=== PATIENT | female | born 1975 | race Caucasian/White ===

== ENCOUNTER 2017-05-15 20:02 | Emergency (ER) | payer BC ==
[~2017-05-15] VITALS: Ht 170.2 cm; Wt 77.0 kg
[~2017-05-15 20:02] MED LIST: ADDE30TA PO
[2017-05-15 20:19] VITALS: BP 169/102; PULSE 77; RESP 20; TEMP 98.4; O2SAT 100
[2017-05-15] MEDS ORDERED: LEVO25TA39 PO (20:29)
[2017-05-15] MEDS ORDERED: AMLO2.5T PO (20:29)
[2017-05-15] MEDS ORDERED: ADDE30TA PO (20:29)
[2017-05-15] MEDS ORDERED: CLON0.5T PO (20:29)
--- NOTE | 2017-05-15 20:33 | PD ---
HPI Chief Complaint: Eye Problems/Injury Time Seen by Provider: 20:26 Travel History International Travel<30 days: No Contact w/Intl Traveler<30days: No Traveled to known affect area: No History of Present Illness HPI 42-year-old female presents the emergency department with injury to the right face and eye. Patient states she was bent over her [employer] dog when he lifts his head straight up and hit her directly in the face over the right eye. Patient now has pain, ecchymosis, and swelling to the right eye orbit. Patient states no visual changes or burning to the eye itself. Patient states she "almost passed out". Pain is localized around the eye socket. She denies dental pain, but states her right jaw is somewhat sore. She denies neck pain. She denies any other injury. Pain is currently an 8 out of 10. Patient is allergic to sulfa and morphine. PFSH Past Medical History ADHD: Yes Arthritis: No Asthma: No Autoimmune Disease: No Blood Disorders: No Depression: Yes Heart Rhythm Problems: No Cancer: No Cardiovascular Problems: No High Cholesterol: No Chemotherapy: No Chest Pain: No Congestive Heart Failure: No COPD: No Diabetes: No Diminished Hearing: No Endocrine: No GERD: No Glaucoma: No Genitourinary: No Headaches: Yes Hepatitis: No Hiatal Hernia: No Hypertension: No Immune Disorder: No Kidney Stones: No Musculoskeletal: No Neurologic: Yes (NEUROPATHY) Respiratory: No Integumentary: Yes (SHINGLES 12 X'S ) Myocardial Infarction: No Radiation Therapy: No Renal Failure: No Sickle Cell Disease: No Sleep Apnea: No Thyroid Disease: No Ulcer: No LMP: 3 WEEKS AGO Tubal Ligation: Yes Past Surgical History Abdominal Surgery: Yes AICD: No Section: Yes Gynecologic Surgery: Yes (RIGHT OOPHERECTOMY AND FALOPIAN TUBE) Joint Replacement: No Neurologic Surgery: Yes Pacemaker: No Social History Alcohol Use: No Tobacco Use: No Substance Use: No Allergies-Medications (Allergen,Severity, Reaction): Coded Allergies: Sulfa (Sulfonamide Antibiotics) (Unverified Allergy, Severe, HIVES, ) morphine (Unverified Allergy, Severe, 05/15/17) Reported Meds & Prescriptions Reported Meds & Active Scripts Active Ibuprofen 800 Mg Tab 800 Mg PO Q8H PRN 10 Days Mapap Extra Strength (Acetaminophen) 500 Mg Tab 1,000 Mg PO Q6HR PRN 10 Days Reported Levoxyl (Levothyroxine Sodium) 25 Mcg Tab 25 Mcg PO DAILY Amlodipine (Amlodipine Besylate) 2.5 Mg Tab 2.5 Mg PO DAILY Clonazepam 0.5 Mg Tab 0.5 Mg PO BID PRN Adderall (Amphetamine-Dextroamphetamine) 30 Mg Tab 30 Mg PO BID Avoid late evening doses. Space doses at least 4 to 6 hours if more than once/day dosing. Review of Systems Except as stated in HPI: all other systems reviewed are Neg General / Constitutional: No: Fever Eyes: No: Diploplia, Blurred Vision, Photophobia, Drainage, Redness, Foreign Body Sensation, Pain, Tearing, Blind Spots, Visual changes, Blindness HENT: Positive: Headaches, No: Vertigo, Lightheadedness, Sore Throat, Rhinitis , Rhinorrhea, Congestion, Nosebleed, Neck Stiffness, Neck Pain, Masses, Gingival Bleeding, Dental Difficulties, Ear Discharge, Earache Cardiovascular: No: Chest Pain or Discomfort Respiratory: No: Shortness of Breath Gastrointestinal: No: Abdominal Pain Genitourinary: No: Dysuria Musculoskeletal: No: Pain Skin: No Rash Neurologic: No: Weakness, Dizziness Psychiatric: No: Depression Endocrine: No: Polydipsia Hematologic/Lymphatic: No: Easy Bruising Physical Exam Narrative GENERAL: He appears in mild distress. SKIN: Warm and dry. Normal color. Normal turgor. No open wounds. Patient has ecchymosis to the right brow and upper eyelid as well as the lower eyelid and upper maxillary cheek. HEAD: Tender along the right brow and upper maxillary cheek without obvious deformity. Normocephalic. EYES: Pupils equal and round. No scleral icterus. No injection or drainage. Ocular motions are full without diplopia or other obvious signs of entrapment. ENT: No nasal bleeding or discharge. Mucous membranes pink and moist. No dental injury. Pharynx is clear. Airway is patent. NECK: Trachea midline. No bony tenderness or step-off. Range of motion is full and nontender. CARDIOVASCULAR: Regular rate and rhythm. RESPIRATORY: No accessory muscle use. Clear to auscultation. Breath sounds equal bilaterally. MUSCULOSKELETAL: Extremities without clubbing, cyanosis, or edema. No obvious deformities. NEUROLOGICAL: Awake and alert. No obvious cranial nerve deficits. Motor grossly within normal limits. Five out of 5 muscle strength in the arms and legs. Normal speech. PSYCHIATRIC: Appropriate mood and affect; insight and judgment normal. Data Data Last Documented VS Vital Signs Date Time Temp Pulse Resp B/P (MAP) Pulse Ox O2 Delivery O2 Flow Rate FiO2 05/15/17 20:19 98.4 77 20 169/102 (124) [address] Brain W/O Iv Contrast(Rout) (05/15/17 20:29) Ct Facial Bones W/O Iv Cont (05/15/17 20:29) Acetaminophen (Tylenol) (05/15/17 20:45) Ibuprofen (Motrin) (05/15/17 22:15) [facility] Medical Decision Making Medical Screen Exam Complete: Yes Emergency Medical Condition: Yes Differential Diagnosis Facial contusion. Right eye contusion. Possible facial fracture. Narrative Course Patient is medically stable at time of exam. CT of the head and facial bones are ordered. Patient is given acetaminophen [address] of the brain shows no acute findings. CT of the facial bones show no fracture. Patient is given 800 mg ibuprofen by mouth. Patient is to continue with ice frequently to the injured area. Patient is to take ibuprofen and Tylenol as discussed. Patient follow-up with her primary care or return to emergency department as needed. Diagnosis Primary Impression: Contusion of face Qualified Codes: S00.83XA - Contusion of other part of head, initial encounter Referrals: Primary Care Physician Patient Instructions: Black Eye (ED), Contusion in Adults (ED), General Instructions Additional Instructions: Patient is given acetaminophen [address] of the brain shows no acute findings. CT of the facial bones show no fracture. Patient is given 800 mg ibuprofen by mouth. Patient is to continue with ice frequently to the injured area. Patient is to take ibuprofen and Tylenol as discussed. Patient follow-up with her primary care or return to emergency department as needed. Med/Other Pt SpecificInfo: Prescription(s) given Scripts Ibuprofen (Ibuprofen) 800 Mg Tab 800 MG PO Q8H Y for PAIN SCALE 5 TO 10 for 10 Days, #30 TAB 0 Refills Prov: Nolberto Davila MD 05/15/17 Acetaminophen (Mapap Extra Strength) 500 Mg Tab 1000 MG PO Q6HR Y for PAIN for 10 Days, TAB 0 Refills Prov: Nolberto Davila MD 05/15/17 Disposition: 01 DISCHARGE HOME Condition: Stable Francis Thomas May 15, 2017 20:33
[2017-05-15] MEDS ORDERED: ACETAMINOPHEN 500 MG CPLT PO ONE (20:45)
--- NOTE | 2017-05-15 21:55 | RADRPT ---
EXAM DATE/TIME: 05/15/2017 21:26 [facility] COMPARISON: No previous studies available for comparison. INDICATIONS : Trauma, hit in right side of face with dog's head. RADIATION DOSE: 62.30 CTDIvol (mGy) MEDICAL HISTORY : Hypertension. SURGICAL HISTORY : Tubal ligation. ENCOUNTER: Initial ACUITY: 1 day PAIN SCALE: 8/10 LOCATION: Right eye TECHNIQUE: Multiple contiguous axial images were obtained of the head. Using automated exposure control and adj ustment of the mA and/or kV according to patient size, radiation dose was kept as low as reasonably a chievable to obtain optimal diagnostic quality images. DICOM format image data is available electro nically for review and comparison. FINDINGS: CEREBRUM: The ventricles are normal for age. No evidence of midline shift, mass lesion, hemorrhage or acute in farction. No extra-axial fluid collections are seen. POSTERIOR FOSSA: The cerebellum and brainstem are intact. The 4th ventricle is midline. The cerebellopontine angle i s unremarkable. EXTRACRANIAL: The visualized portion of the orbits is intact. SKULL: The calvaria is intact. No evidence of skull fracture. CONCLUSION: Negative noncontrast head CT. Cory Benitez MD on May 15, 2017 at 21:52 Board Certified Radiologist. This report was verified electronically.
--- NOTE | 2017-05-15 21:56 | RADRPT ---
EXAM DATE/TIME: 05/15/2017 21:26 [facility] COMPARISON: No previous studies available for comparison. INDICATIONS : Trauma, hit in right side of face with dog's head. RADIATION DOSE: 34.92 CTDIvol (mGy) MEDICAL HISTORY : Hypertension. SURGICAL HISTORY : Tubal ligation. ENCOUNTER: Initial ACUITY: 1 day PAIN SCORE: 8/10 LOCATION: Right eye TECHNIQUE: Volumetric scanning of the facial bones was performed. Using automated exposure control and adjustme nt of the mA and/or kV according to patient size, radiation dose was kept as low as reasonably achiev able to obtain optimal diagnostic quality images. DICOM format image data is available electronicall y for review and comparison. FINDINGS: ORBITS: The orbital and infraorbital osseous structures are intact. The retroconal structures have a normal configuration. No radiopaque foreign bodies are seen. NASAL BONE: The nasal bone and maxillary spine are intact ZYGOMATIC ARCHES: Symmetric without evidence of fracture. SINUSES: The maxillary, ethmoid and frontal sinuses are intact. No air-fluid levels seen. NASAL CAVITY: The nasal septum is intact and midline. The lacrimal ducts are intact. SOFT TISSUES: No radiopaque foreign bodies seen. No soft-tissue swelling is seen. INTRACRANIAL: No intracranial air seen. CRIBIFORM PLATE: Grossly intact. CONCLUSION: Intact facial bones. Cory Benitez MD on May 15, 2017 at 21:54 Board Certified Radiologist. This report was verified electronically.
[2017-05-15] MEDS ORDERED: MAPA500T13 PO (22:11)
[2017-05-15] MEDS ORDERED: IBUP800T23 PO (22:11)
[2017-05-15] MEDS ORDERED: IBUPROFEN 800 MG TAB PO ONE (22:15)
== END 2017-05-15 22:59 | disposition home or self-care (01) ==
LOC: PHEFT 20:02
DX: S00.83XA Contusion of other part of head, initial encounter (principal); W22.8XXA Striking against or struck by other objects, initial encounter
CPT/HCPCS: 70450; 70486